=== PATIENT | male | born 1985 | race Caucasian/White ===

== ENCOUNTER 2021-04-09 04:32 | Day surgery (SDC) | payer BC, OTHER ==
[2021-04-06 12:03] VITALS: BMI 28.6
[2021-04-09] MEDS ORDERED: LIDOCAINE HCL 2% JELLY 10 ML CARTRIDGE ONE (08:14)
[2021-04-09 08:29] VITALS: TEMP 97.8
[2021-04-09 09:11] VITALS: BP 111/64; PULSE 79
== END 2021-04-09 09:20 | disposition home or self-care (01) ==
LOC: JASU-ENDO 04:32
PROVIDERS: ATTEND Internal Medicine Gastroenterology
PROC: 0DJD8ZZ Inspection of Lower Intestinal Tract, Via Natural or Artificial Opening Endoscopic (ICD-10-PCS; principal; 2021-04-09 08:00)
DX: K64.8 Other hemorrhoids (principal); K92.1 Melena; R10.9 Unspecified abdominal pain